=== PATIENT | male | born 1995 | race Caucasian/White ===

== ENCOUNTER 2021-02-20 01:59 | Emergency (ER) | payer OTHER, SELFPAY ==
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
[2021-02-20 02:18] VITALS: BP 129/81; BP 154/95; PULSE 102; PULSE 105; RESP 14; O2SAT 98; O2SAT 99; BMI 37.6
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
[2021-02-20 02:24] VITALS: BP 134/94; PULSE 101; RESP 14; O2SAT 96
[2021-02-20 02:28] LABS: MANUAL DIFF FLAG NO
[2021-02-20 02:30] LABS: Glucose, Whole Blood 108 mg/dL (60-115)
[2021-02-20 02:38] LABS: Basophils Percent Auto 0.3 % (0-2); Eosinophils Absolute Auto 0.2 X10*3/uL (0.0-0.4); Eosinophils Percent Auto 2.4 % (0-4); Hematocrit 47.8 % (42-52); Hemoglobin 16.2 g/dl (14.0-18.0); Imm Gran Abs Auto 0.04 X10*3/uL (0.00-0.03); Imm Gran Pct Auto 0.4 % (0.0-0.4); Lymphocytes Absolute Auto 3.6 X10*3/uL (1.2-4.9); Lymphocytes Percent Auto 36.2 % (20-40); Mean Corpuscular HGB Conc 33.9 g/dl (31.0-36.0); Mean Corpuscular Hemoglobin 30.6 pg (27.0-33.0); Mean Corpuscular Volume 90.2 fL (80-98); Mean Platelet Volume 10.7 fL (9.4-12.4); Monocytes Absolute Auto 0.7 X10*3/uL (0.1-1.2); Monocytes Percent Auto 6.7 % (2-11); Neutrophils Absolute Auto 5.4 X10*3/uL (2.0-8.3); Platelet Count 202 X10*3/uL (160-400); Red Cell Distribution Width 13.2 % (11.0-16.0); White Blood Count 10.1 X10*3/uL (4.8-10.8)
[2021-02-20] MEDS: Ketorolac Tromethamine 15 MG/ML VIAL IVPUSH (02:42)
[2021-02-20] MEDS: Diphth,Pertus(ACell),Tet Adult 0.5 ML SYRINGE IM (02:42)
[2021-02-20 02:47] LABS: Prothrombin Time 11.8 SEC (10.8-13.0)
[2021-02-20 02:49] LABS: Partial Thromboplastin Time 26.8 SEC (24.1-38.0)
[2021-02-20 02:53] LABS: COVID-19 Test Negative (Negative)
[2021-02-20 03:03] LABS: Troponin-I High Sensitivity < 3.5 ng/L (<3.5-35.0)
[2021-02-20] MEDS: iohexoL 350 MG/ML 100 ML INFUS..BTL 85 ML IV (03:26)
[2021-02-20 03:31] VITALS: BP 124/71; PULSE 88; RESP 10; O2SAT 99
--- NOTE | 2021-02-20 03:31 | PC.NURSE ---
This tech cleaned pts lacs to left forehead with peroxide and saline rn is aware pt tolerated well.
[2021-02-20 03:49] VITALS: BP 124/71; PULSE 87; RESP 16; O2SAT 95
[2021-02-20 03:56] LABS: Ethanol 245 mg/dL
[2021-02-20 03:59] LABS: Alanine Aminotransferase 45 U/L (0-40); Albumin Level 4.3 g/dL (3.5-5.0); Alkaline Phosphatase 84 U/L (39-117); Anion Gap 20 (12-20); Aspartate Amino Transferase 29 U/L (5-37); Bilirubin Total 0.3 mg/dL (0.0-1.0); Blood Urea Nitrogen 10 mg/dL (9-16); Calcium 8.5 mg/dL (8.4-10.2); Carbon Dioxide 19 mmol/L (22-29); Chloride 108 mmol/L (96-108); Estimated Glomerular Filt Rate > 60; Glucose Random 104 mg/dL (60-115); Potassium 3.9 mmol/L (3.3-5.1); Sodium 143 mmol/L (135-145); Total Protein 7.2 g/dL (6.5-8.0)
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
[2021-02-20 04:46] VITALS: BP 110/64; PULSE 87; RESP 20; O2SAT 95
--- NOTE | 2021-02-20 05:03 | PC.NURSE ---
MOTHER ASKING WHEN PATIENT CAN GO HOME. PROVIDER AT BEDSIDE AND EXPLAINED THAT PATIENT NEEDS TO STAY IN ER UNTIL HE CAN WALK STEADILY AND UNASSISTED. FOR PT'S SAFETY AND TO PREVENT FURTHER INJURY.
--- NOTE | 2021-02-20 06:21 | PC.NURSE ---
pt able to stand at bedside and use urinal with steadiness. pt awake and alert, having conversation with mother at bedside.
[2021-02-20 06:22] VITALS: BP 119/45; PULSE 84
[2021-02-20 06:39] LABS: Glucose Urine UA NEG (NEG); Leukocyte Esterase Urine NEG (NEG); Nitrite Urine NEG (NEG); PH 5.5 (5.0-8.0); Specific Gravity - Urine <= 1.005 (1.005-1.025); Urine Blood NEG (NEG); Urine Ketones NEG (NEG); Urine Protein NEG (NEG-TRACE)
[2021-02-20 06:41] LABS: Amphetamine Screen Urine Not Detected (Not Detect); Barbiturates, Urine Not Detected (Not Detect); Benzodiazepines Screen Urine Not Detected (Not Detect); Cannabinoid Screen Urine POSITIVE (Not Detect); Cocaine Screen Urine Not Detected (Not Detect); Opiate Screen Urine Not Detected (Not Detect); Phencyclidine Screen Urine Not Detected (Not Detect)
[2021-02-20 06:47] LABS: Appearance Urine CLEAR; Color Urine STRAW
== END 2021-02-20 06:49 | disposition home or self-care (01) ==
PROVIDERS: Emergency Provider Student in an Organized Health Care Education/Training Program
DX: F10.120 Alcohol abuse with intoxication, uncomplicated (principal); Y90.8 Blood alcohol level of 240 mg/100 ml or more; S01.81XA Laceration without foreign body of other part of head, initial encounter; V47.5XXA Car driver injured in collision with fixed or stationary object in traffic accident, initial encounter; F12.90 Cannabis use, unspecified, uncomplicated; Z20.822 Contact with and (suspected) exposure to COVID-19; Y93.89 Activity, other specified; Y92.414 Local residential or business street as the place of occurrence of the external cause; Y99.9 Unspecified external cause status
CPT/HCPCS: 36415; 70450; 70486; 71260; 72125; 74177; 80053; 80307; 80320; 81003; 82947; 84484; 85025; 85610; 85730; 86850; 86900; 87635; 90471; 90715; 93005; 96374; 99284; 99285; J1885; Q9967